=== PATIENT | male | born 1935 | race African-American/Black ===

== ENCOUNTER 2019-02-05 09:17 | Observation (INO) | payer MEDICAID, OTHER ==
[~2019-02-05] VITALS: Ht 172.7 cm; Wt 63.5 kg
[2019-02-05 09:30] VITALS: BP 104/63
--- NOTE | 2019-02-05 09:30 | NUR ---
ED Nurse Note: pt brought in to ER by ambulance from [facility] due to chest pain. pt aao x4 and ambulatory but weak gait. per pt, he started having chest pain 30 minutes ago and told SNF nurse and took Nitro 0.4mg under the tongue and no chest pain at this moment. skin clean and intact. pt wanted to have BM and put him on bedpan and no BM for more than 5 mintues. pt was told to let nurse know for BM again. pt is in gown and on cardiac montior. vs stable as documented. pt is at room air.
[2019-02-05 10:02] LABS: BASOPHILS % (AUTO) 0.8 % (0.0-2.0); EOSINOPHILS % (AUTO) 1.8 % (0.0-3.0); HEMATOCRIT 42.4 % (42.0-52.0); HEMOGLOBIN 13.3 G/DL (14.2-18.0); LYMPHOCYTES % (AUTO) 27.5 % (20.0-45.0); MEAN CORPUSCULAR VOLUME 91 FL (80-99); MONOCYTES % (AUTO) 7.7 % (1.0-10.0); NEUTROPHILS % (AUTO) 62.1 % (45.0-75.0); PLATELET COUNT 234 K/UL (150-450); RED BLOOD COUNT 4.66 M/UL (4.70-6.10); RED CELL DISTRIBUTION WIDTH 14.4 % (11.6-14.8)
--- NOTE | 2019-02-05 10:10 | NUR ---
ED Nurse Note: x-ray at bedside.
[2019-02-05] MEDS ORDERED: ATORVASTATIN CA40 MG ORAL (10:19)
[2019-02-05] MEDS ORDERED: ASPIR 8181 MG ORAL (10:19)
[2019-02-05] MEDS ORDERED: PLAVIX75 MG ORAL (10:19)
[2019-02-05] MEDS ORDERED: LEVOTHYROXINE75 MCG ORAL (10:30)
[2019-02-05] MEDS ORDERED: MILK OF MA400 MG/51 ORAL (10:30)
[2019-02-05] MEDS ORDERED: COLACE100 MG ORAL (10:30)
[2019-02-05] MEDS ORDERED: MULTIVITAMINS1 EAC8 ORAL (10:30)
[2019-02-05] MEDS ORDERED: SENNA8.6 M2 PO (10:30)
[2019-02-05] MEDS ORDERED: CRANBERRY450 M4 PO (10:30)
[2019-02-05] MEDS ORDERED: HUMALOG100 UNIT/4 SUBQ (10:30)
[2019-02-05] MEDS ORDERED: METOPROLOL TART25 MG ORAL (10:30)
--- NOTE | 2019-02-05 10:31 | Diagnostic Imaging Report ---
EXAM: XR Chest, 1 View CLINICAL HISTORY: CP TECHNIQUE: Frontal view of the chest. COMPARISON: None FINDINGS: Hardware: None. Lungs/pleura: Interstitial opacities may represent pulmonary vasculature congestion versus infectious/inflammatory process. No focal consolidation. No pleural effusion or pneumothorax. Heart/mediastinum: Normal. No cardiomegaly. Soft tissues: Unremarkable. Bones: No acute fracture. Degenerative changes of the acromioclavicular joints. Mild scoliosis. Upper abdomen: Normal. IMPRESSION: Interstitial opacities may represent pulmonary vasculature congestion versus infectious/inflammatory process.
[2019-02-05 10:33] LABS: ANION GAP 9 mmol/L (5-15); BLOOD UREA NITROGEN 11 mg/dL (7-18); CALCIUM 8.7 MG/DL (8.5-10.1); CARBON DIOXIDE 27 MMOL/L (21-32); CHLORIDE 104 MMOL/L (98-107); CREATININE 1.3 MG/DL (0.55-1.30); POTASSIUM 3.9 MMOL/L (3.5-5.1); SODIUM 140 MMOL/L (136-145)
[2019-02-05 10:44] LABS: ALANINE AMINOTRANSFERASE 29 U/L (12-78); ALBUMIN 3.2 G/DL (3.4-5.0); ALBUMIN/GLOBULIN RATIO 0.9 (1.0-2.7); ALKALINE PHOSPHATASE 81 U/L (46-116); ASPARTATE AMINO TRANSFERASE 23 U/L (15-37); BILIRUBIN,TOTAL 0.7 MG/DL (0.2-1.0); CREATINE KINASE 132 U/L (26-308)
--- NOTE | 2019-02-05 11:10 | Emergency Room Report ---
History of Present Illness General Chief Complaint: Chest Pain Source: Patient, Medical Record Present Illness HPI Patient presented with reports of chest pain by paramedics Patient reports that he feels significantly better upon arrival he was given nitroglycerin and aspirin patient's blood pressure did Decrease likely secondary to this intervention by paramedics Here denies any chest pain or shortness of breath denies any vomiting patient does have underlying Dementia which does limit the history of present illness denies any focal weakness Allergies: Coded Allergies: No Known Allergies (Unverified , 02/05/19) Patient History Past Medical History: see triage record Pertinent Family History: none Reviewed Nursing Documentation: PMH: Agreed; PSxH: Agreed Nursing Documentation-PMH Past Medical History: No History, Except For Hx COPD: Yes Hx Diabetes: Yes - insulin Review of Systems All Other Systems: negative except mentioned in HPI Physical Exam Vital Signs Date Time Temp Pulse Resp B/P (MAP) Pulse Ox O2 Delivery O2 Flow Rate FiO2 02/05/19 09:15 98.1 90 18 74/62 (66) 98 Room Air Sp02 EP Interpretation: reviewed, normal General Appearance: well appearing, no apparent distress Head: normocephalic, atraumatic Eyes: bilateral eye PERRL, bilateral eye EOMI ENT: hearing grossly normal, normal pharynx, TMs + canals normal, uvula midline Neck: full range of motion, supple, no meningismus, no bony tend Respiratory: lungs clear, normal breath sounds, no rhonchi, no respiratory distress, no retraction, no accessory muscle use Cardiovascular #1: normal peripheral pulses, regular rate, rhythm, no edema, no gallop, no JVD, no murmur Gastrointestinal: normal bowel sounds, non tender, soft, no mass, no organomegaly, non-distended, no guarding, no hernia, no pulsatile mass, no rebound Genitourinary: no CVA tenderness Musculoskeletal: normal inspection Neurologic: oriented x3, responsive, choir teacher III-XII nml as tested, motor strength/ tone normal, sensory intact Psychiatric: mood/affect normal Skin: normal color, no rash, warm/dry, palpation normal Lymphatic: normal inspection, no adenopathy Medical Decision Making Diagnostic Impression: Primary Impression: ACS (acute coronary syndrome) ER Course Patient is a fairly complex patient with multiple differential to consideration including but not limited to cardiac cardiopulmonary and vascular emergencies Patient's EKG does not show any obvious acute pathology cardiac enzyme is negative x1 patient's blood pressure has improved significantly And will be observed for further evaluation Labs Test 02/05/19 09:50 White Blood Count 4.0 K/UL (4.8-10.8) Red Blood Count 4.66 M/UL (4.70-6.10) Hemoglobin 13.3 G/DL (14.2-18.0) Hematocrit 42.4 % (42.0-52.0) Mean Corpuscular Volume 91 FL (80-99) Mean Corpuscular Hemoglobin 28.5 PG (27.0-31.0) Mean Corpuscular Hemoglobin Concent 31.3 G/DL (32.0-36.0) Red Cell Distribution Width 14.4 % (11.6-14.8) Platelet Count 234 K/UL (150-450) Mean Platelet Volume 5.7 FL (6.5-10.1) Neutrophils (%) (Auto) 62.1 % (45.0-75.0) Lymphocytes (%) (Auto) 27.5 % (20.0-45.0) Monocytes (%) (Auto) 7.7 % (1.0-10.0) Eosinophils (%) (Auto) 1.8 % (0.0-3.0) Basophils (%) (Auto) 0.8 % (0.0-2.0) Sodium Level 140 MMOL/L (136-145) Potassium Level 3.9 MMOL/L (3.5-5.1) Chloride Level 104 MMOL/L (98-107) Carbon Dioxide Level 27 MMOL/L (21-32) Anion Gap 9 mmol/L (5-15) Blood Urea Nitrogen 11 mg/dL (7-18) Creatinine 1.3 MG/DL (0.55-1.30) Estimat Glomerular Filtration Rate mL/min (>60) Glucose Level 136 MG/DL (74-106) Calcium Level 8.7 MG/DL (8.5-10.1) Total Bilirubin 0.7 MG/DL (0.2-1.0) Aspartate Amino Transf (AST/SGOT) 23 U/L (15-37) Alanine Aminotransferase (ALT/SGPT) 29 U/L (12-78) Alkaline Phosphatase 81 U/L (46-116) Total Creatine Kinase 132 U/L (26-308) Creatine Kinase MB 2.0 NG/ML (0.0-3.6) Creatine Kinase MB Relative Index 1.5 Troponin I 0.001 ng/mL (0.000-0.056) Pro-B-Type Natriuretic Peptide 202 pg/mL (0-125) Total Protein 6.8 G/DL (6.4-8.2) Albumin 3.2 G/DL (3.4-5.0) Globulin 3.6 g/dL Albumin/Globulin Ratio 0.9 (1.0-2.7) Lipase 217 U/L (73-393) EKG Diagnostic Results Rate: normal Rhythm: NSR ST Segments: no acute changes - No specific ST T wave changes Rhythm Strip Diag. Results EP Interpretation: yes Rate: 77 Rhythm: NSR, no PVC's, no ectopy Chest X-Ray Diagnostic Results Chest X-Ray Diagnostic Results : Chest X-Ray Ordered: Yes # of Views/Limited/Complete: 1 View Indication: Chest Pain EP Interpretation: Yes Interpretation: no consolidation, no effusion, no pneumothorax, no acute cardiopulmonary disease - Question congestion versus poor inspiration Impression: No acute disease - Possible congestion Electronically Signed by: Marin Layton DO Last Vital Signs Date Time Temp Pulse Resp B/P (MAP) Pulse Ox O2 Delivery O2 Flow Rate FiO2 02/05/19 09:30 60 18 Room Air 02/05/19 09:30 97.7 104/63 98 Status: improved Disposition: PLACE IN OBSERVATION Condition: Serious Referrals: NON PHYSICIAN (PCP) Marin Layton DO Feb 05, 2019 11:10
--- NOTE | 2019-02-05 12:54 | NUR ---
ED Nurse Note: Report given to ALENA Ceron
--- NOTE | 2019-02-05 13:50 | NUR ---
ED Nurse Note: pt left unit with 2 RNs in stable condition.
--- NOTE | 2019-02-05 14:00 | NUR ---
NURSE NOTES: Pt admitted to the unit from ED, Iv intact, pt Ox2-3, pt blind, with confusion. upper dentures in place. Heart monitor on. IV intact and asymptomatic. Patient in stable condition, breathing nonlabored in room air. Call light and bedside table within reach. No s/s of distress noted at this time. Bed in lowest position with two side rails up, break engaged. Will call the doctor regarding admission orders.will continue to monitor.
[2019-02-05 14:05] VITALS: BP 138/76
[2019-02-05 16:00] VITALS: BP 131/79
[2019-02-05] MEDS ORDERED: Milk of Magnesia 30ml Ud ORAL PRN (16:05)
[2019-02-05] MEDS: NovoLOG Insulin Flexpen SUBQ SCH ×2 (16:19→21:05)
--- NOTE | 2019-02-05 19:22 | NUR ---
HAND-OFF: Report given to ALENA Steele.
--- NOTE | 2019-02-05 19:30 | NUR ---
NURSE NOTES: Received report from ALENA Feliz. Patient is awake sitting on the bed; resting comfortably. No signs of acute distress noted; denies pain at this time. AOx3; able to make needs known with periods of forgetfulness. Ambulates with some supervision. Checked IV site; patent and flushed. No erythema, bleeding, or infiltration noted. Bed at lowest position, brakes on, siderails up x3. Call light within reach. Will continue to monitor.
[2019-02-05 20:00] VITALS: BP 144/82
[2019-02-05] MEDS: Metoprolol 25mg tab ORAL SCH (20:55)
[2019-02-05] MEDS: Atorvastatin 20mg tab ORAL SCH (20:55)
--- NOTE | 2019-02-05 21:06 | NUR ---
NURSE NOTES: Patient refuses skin assessment and insists on keeping the door shut. Risks and benefits explained; still refuses skin assessment and to leave the door open.
[2019-02-06] VITALS: BP 149/88
--- NOTE | 2019-02-06 00:16 | History & Physical ---
History of Present Illness General Date patient seen: Feb 06, 2019 Reason for Hospitalization: Chest Pain Present Illness HPI 83 yo male with hx of dementia c/o chest pain and was sent to ER.. Can't obtain reliable hx. Allergies: Coded Allergies: No Known Allergies (Unverified , 02/05/19) Medication History Scheduled Aspirin* (Aspir 81*), 81 MG ORAL DAILY, (Reported) Atorvastatin Calcium* (Atorvastatin Calcium*), 40 MG ORAL BEDTIME, (Reported) Clopidogrel Bisulfate* (Plavix*), 75 MG ORAL DAILY, (Reported) Cranberry Fruit Concentrate (Cranberry), 450 MG PO BID, (Reported) Docusate Sodium* (Colace*), 100 MG ORAL DAILY, (Reported) Levothyroxine Sodium* (Levothyroxine Sodium*), 25 MCG ORAL DAILY, (Reported) Magnesium Hydroxide* (Milk Of Magnesia*), 30 ML ORAL DAILY, (Reported) Metoprolol Tartrate* (Metoprolol Tartrate*), 25 MG ORAL EVERY 12 HOURS, ( Reported) Multivitamin With Minerals (Multivitamins With Minerals*), 1 TAB ORAL DAILY, ( Reported) Sennosides (Senna), Unknown Dose PO HS, (Reported) Miscellaneous Medications Insulin Lispro (Humalog), 0 SUBQ, (Reported) Patient History Limited by: medical condition History Provided By: Medical Record Healthcare decision maker Resuscitation status Full Code Advanced Directive on File Past Medical/Surgical History Past Medical/Surgical History: (1) Dementia (2) Diabetes 1.5, managed as type 2 (3) Hypertension Review of Systems Review of Symptoms General ROS: no weight loss or fever Psychological ROS: no depression or mood changes, no memory loss Ophthalmic ROS: no visual changes or eye irritation ENT ROS: no nasal congestion, hearing loss, dizziness Allergy and Immunology ROS: no allergic symptoms or urticaria Hematological and Lymphatic ROS: no swollen glands, unusual bleeding or bruising Endocrine ROS: diabetes, HTN Respiratory ROS: no cough, shortness of breath, or wheezing Cardiovascular ROS: no chest pain or dyspnea on exertion Gastrointestinal ROS: denies abdominal pain, bright red blood in stool. Musculoskeletal ROS: no myalgias or arthralgias Neurological ROS: Dementia Dermatological ROS: no new or changing skin lesions, rashes or pruritis Physical Exam Physical Exam General appearance: alert, cooperative, no distress, appears stated age Head: Normocephalic, without obvious abnormality, atraumatic Eyes: conjunctivae/corneas clear. PERRL, EOM's intact. Fundi benign Throat: Lips, mucosa, and tongue normal. Teeth and gums normal Neck: supple, symmetrical, trachea midline, no adenopathy, thyroid: not enlarged, symmetric, no tenderness/mass/nodules, no carotid bruit and no JVD Lungs: clear to auscultation bilaterally Heart: regular rate and rhythm, S1, S2 normal, no murmur, click, rub or gallop Abdomen: soft, non-tender. Bowel sounds normal. No masses, no organomegaly Extremities: extremities normal, atraumatic, no cyanosis or edema Pulses: 2+ and symmetric Skin: Skin color, texture, turgor normal. No rashes or lesions Neurologic: Grossly normal Last 24 Hour Vital Signs Date Time Temp Pulse Resp B/P (MAP) Pulse Ox O2 Delivery O2 Flow Rate FiO2 02/05/19 21:00 Room Air 02/05/19 20:55 63 144/82 02/05/19 20:00 99.1 63 20 144/82 (102) 100 02/05/19 20:00 68 02/05/19 16:00 70 02/05/19 16:00 98.1 57 20 131/79 (96) 95 02/05/19 14:38 Room Air 02/05/19 14:05 98.4 69 18 138/76 (96) 100 02/05/19 13:50 97.7 60 18 104/63 98 Room Air 02/05/19 09:30 60 18 Room Air 02/05/19 09:30 97.7 60 18 104/63 98 Room Air 02/05/19 09:15 98.1 90 18 74/62 (66) 98 Room Air Intake and Output 02/05/19 02/06/19 19:00 07:00 Intake Total 740 ml Balance 740 ml Intake Oral 240 ml IV Total 500 ml # Voids 3 Laboratory Tests Test 02/05/19 09:50 White Blood Count 4.0 K/UL (4.8-10.8) L Red Blood Count 4.66 M/UL (4.70-6.10) L Hemoglobin 13.3 G/DL (14.2-18.0) L Hematocrit 42.4 % (42.0-52.0) Mean Corpuscular Volume 91 FL (80-99) Mean Corpuscular Hemoglobin 28.5 PG (27.0-31.0) Mean Corpuscular Hemoglobin Concent 31.3 G/DL (32.0-36.0) L Red Cell Distribution Width 14.4 % (11.6-14.8) Platelet Count 234 K/UL (150-450) Mean Platelet Volume 5.7 FL (6.5-10.1) L Neutrophils (%) (Auto) 62.1 % (45.0-75.0) Lymphocytes (%) (Auto) 27.5 % (20.0-45.0) Monocytes (%) (Auto) 7.7 % (1.0-10.0) Eosinophils (%) (Auto) 1.8 % (0.0-3.0) Basophils (%) (Auto) 0.8 % (0.0-2.0) Sodium Level 140 MMOL/L (136-145) Potassium Level 3.9 MMOL/L (3.5-5.1) Chloride Level 104 MMOL/L (98-107) Carbon Dioxide Level 27 MMOL/L (21-32) Anion Gap 9 mmol/L (5-15) Blood Urea Nitrogen 11 mg/dL (7-18) Creatinine 1.3 MG/DL (0.55-1.30) Estimat Glomerular Filtration Rate mL/min (>60) Glucose Level 136 MG/DL (74-106) H Calcium Level 8.7 MG/DL (8.5-10.1) Total Bilirubin 0.7 MG/DL (0.2-1.0) Aspartate Amino Transf (AST/SGOT) 23 U/L (15-37) Alanine Aminotransferase (ALT/SGPT) 29 U/L (12-78) Alkaline Phosphatase 81 U/L (46-116) Total Creatine Kinase 132 U/L (26-308) Creatine Kinase MB 2.0 NG/ML (0.0-3.6) Creatine Kinase MB Relative Index 1.5 Troponin I 0.001 ng/mL (0.000-0.056) Pro-B-Type Natriuretic Peptide 202 pg/mL (0-125) H Total Protein 6.8 G/DL (6.4-8.2) Albumin 3.2 G/DL (3.4-5.0) L Globulin 3.6 g/dL Albumin/Globulin Ratio 0.9 (1.0-2.7) L Lipase 217 U/L (73-393) Height (Feet): 5 Height (Inches): 8.00 Weight (Pounds): 140 Medications Current Medications Medications (Trade) Dose Ordered Sig/[place] Route PRN Reason Start Time Stop Time Status Last Admin Dose Admin Acetaminophen (Tylenol) 650 mg PRN PRN ORAL Pain Scale (3-5) 02/05/19 15:45 03/07/19 15:44 Aspirin (Ecotrin) 81 mg DAILY ORAL 02/06/19 09:00 03/08/19 08:59 Atorvastatin Calcium (Lipitor) 40 mg BEDTIME ORAL 02/05/19 21:00 03/07/19 20:59 02/05/19 20:55 Clopidogrel Bisulfate (Plavix) 75 mg DAILY ORAL 02/06/19 09:00 03/08/19 08:59 Dextrose (Dextrose 50%) 25 ml Q30M PRN IV Hypoglycemia 02/05/19 15:45 03/07/19 15:44 Dextrose (Dextrose 50%) 50 ml Q30M PRN IV Hypoglycemia 02/05/19 15:45 03/07/19 15:44 Docusate Sodium (Colace) 100 mg DAILY ORAL 02/06/19 09:00 03/08/19 08:59 Insulin Aspart (NovoLOG) BEFORE MEALS AND HS SUBQ 02/05/19 16:30 03/07/19 16:29 02/05/19 21:05 Levothyroxine Sodium (Synthroid) 25 mcg ACBREAKFAST ORAL 02/06/19 06:30 03/08/19 06:29 Magnesium Hydroxide (Mom) 30 ml PRN PRN ORAL CON 02/05/19 16:05 03/08/19 08:59 Metoprolol Tartrate (Lopressor) 25 mg EVERY 12 HOURS ORAL 02/05/19 21:00 03/07/19 20:59 02/05/19 20:55 Multivitamins Therapeutic (Therapeutic Multivitamin) 1 ea DAILY ORAL 02/06/19 09:00 03/08/19 08:59 Sennosides (Senokot) 8.6 mg DAILY ORAL 02/06/19 09:00 03/08/19 08:59 Objective Narrative HEENTPERRLA,KAREN, Lymphatics,no adenopathy,lungCTA,CV RRR s1s2no m, abdomen soft BS present, no organomegaly, Neuro Alert,nlspeech, CN intact, Memory impared, extremity No E/C/C Assessment/Plan Problem List: (1) Chronic obstructive airway disease ICD Codes: J44.9 - Chronic obstructive pulmonary disease, unspecified SNOMED: 60112521 (2) Dementia ICD Codes: F03.90 - Unspecified dementia without behavioral disturbance SNOMED: 62410303 (3) Hypertension ICD Codes: I10 - Essential (primary) hypertension SNOMED: 90611084 (4) Diabetes 1.5, managed as type 2 ICD Codes: E13.9 - Other specified diabetes mellitus without complications SNOMED: 772775036 (5) Chest pain in adult ICD Codes: R07.9 - Chest pain, unspecified SNOMED: 73095102 Assessment/Plan: Will continue meds, check cardiac enzyme and if negative discharge back to [facility]. Appears to be GI in etiology [facility] Hospital declaration INPATIENT level of care is warranted for this patient because patient is a 89 year old with who presents with suspicion of . I have a high level of concern because . Patient is at high risk for . Plan of care/treatment include . Patient care is expected to be greater than 2 midnights. OBSERVATION level of care is warranted for this patient. Patient is a 89 year old with who presents with . Patient will be admitted for 1 midnight, but if additional night(s) is/are necessary, patient will be converted to inpatient status for the entire hospitalization Disposition: Once the patient is stable to leave the hospital, I anticipate the patient will likely be discharged to the following environment: Estimated discharge date: I spent 70 minutes on this patient's case, and minutes was dedicated to counseling and/or care coordination. MIPS ([employer]it-based Incentive Payment System) Applicable CPT: 58725, 58681 CHECK ALL THAT ARE MET: Measure #5 (CHF): All ages. Prescribe AWILDA/ARB upon discharge for patients with left ventricular systolic dysfunction. If not, the reason is clearly documented in the medical chart. Measure #8 (CHF): All ages. Prescribe a beta yana upon discharge for patients with left ventricular systolic dysfunction. If not, the reason is clearly documented in the medical chart. Measure #47 Advance care plan or surrogate decision maker documented in the medical record. Measure #130 The provider has documented, updated, or reviewed the patients current medication list and has documented it in the patients note. Measure #374 (All): Send report to referring provider. Measure #407(Sepsis due to MSSA bacteremia): Age 18+ Patient treated with a beta-lactam antibiotic (Nafcillin, Oxacillin or Cefazolin) as definitive therapy. MEDICAL COMPLEXITY High complexity medical decision making (need 2/3 categories) Problem - need 4 points Acute/new problem with new plan for workup (4 points, 1 max) Acute/new problem without additional workup (3 points, 1 max) Unstable chronic problem actively being managed (2 point each, 2 max) Stable chronic problem actively being managed (1 point each, 2 max) Self-limited/transient process (constipation, muscle ache, etc) (1 point each , 2 max) Data - need 4 points Reviewed labs/imaging studies (1 points, 2 max) Independent review of imaging (EKG, xrays, etc) (2 points, 2 max) Discussed case with consult/other MD/RN (2 points, 2 max) High Risk - qualify if have one of the following: Severe exacerbation of acute problem, acute mental status change, IV narcotics , monitoring drug levels (vancomycin, INR, tacrolimus etc) Phillip Landon MD Feb 06, 2019 00:16
--- NOTE | 2019-02-06 03:17 | NUR ---
NURSE NOTES: Patient is asleep lying semi-prado's; resting comfortably. No signs of acute distress or pain noted at this time.
[2019-02-06 04:00] VITALS: BP 146/79
[2019-02-06] MEDS: NovoLOG Insulin Flexpen SUBQ SCH ×4 (06:30→23:54)
[2019-02-06] MEDS ORDERED: Levothyroxine 25mcg tab ORAL SCH (06:30)
[2019-02-06 07:15] LABS: BASOPHILS % (AUTO) 1.2 % (0.0-2.0); EOSINOPHILS % (AUTO) 2.3 % (0.0-3.0); HEMOGLOBIN 13.6 G/DL (14.2-18.0); LYMPHOCYTES % (AUTO) 33.7 % (20.0-45.0); MEAN CORPUSCULAR VOLUME 90 FL (80-99); MONOCYTES % (AUTO) 7.6 % (1.0-10.0); NEUTROPHILS % (AUTO) 55.2 % (45.0-75.0); PLATELET COUNT 243 K/UL (150-450); RED BLOOD COUNT 4.68 M/UL (4.70-6.10); RED CELL DISTRIBUTION WIDTH 14.5 % (11.6-14.8); WHITE BLOOD COUNT 4.9 K/UL (4.8-10.8)
--- NOTE | 2019-02-06 07:30 | NUR ---
NURSE NOTES: I received the patient resting in bed. Patient alert to name. Patient set-up to sit at the side of his bed to eat breakfast. Patient does not display any signs of distress or SOB. Bed in the lowest position and call light within reach. I will continue to monitor the patient and implement care.
--- NOTE | 2019-02-06 07:34 | NUR ---
HAND-OFF: Report given to ALENA Bradley. Patient is awake lying semi-prado's; resting comfortably. In stable condition.
[2019-02-06 07:36] LABS: ANION GAP 9 mmol/L (5-15); BLOOD UREA NITROGEN 10 mg/dL (7-18); CALCIUM 9.6 MG/DL (8.5-10.1); CARBON DIOXIDE 25 MMOL/L (21-32); CHLORIDE 104 MMOL/L (98-107); CREATININE 1.3 MG/DL (0.55-1.30); POTASSIUM 3.7 MMOL/L (3.5-5.1); SODIUM 138 MMOL/L (136-145)
[2019-02-06 07:57] VITALS: BP 137/88
[2019-02-06] MEDS: Metoprolol 25mg tab ORAL SCH ×2 (08:08→23:54)
[2019-02-06] MEDS ORDERED: Aspirin EC 81mg tab ORAL SCH (09:00)
[2019-02-06] MEDS ORDERED: Multivitamin w/Minerals tab ORAL SCH (09:00)
[2019-02-06] MEDS ORDERED: Sennosides 8.6mg tab ORAL SCH (09:00)
[2019-02-06] MEDS ORDERED: Milk of Magnesia 30ml Ud ORAL SCH (09:00)
[2019-02-06] MEDS ORDERED: Docusate 100mg cap ORAL SCH (09:00)
[2019-02-06 12:00] VITALS: BP 133/74
--- NOTE | 2019-02-06 13:00 | NUR ---
HAND-OFF: Report given to ALENA Conn.
--- NOTE | 2019-02-06 13:01 | NUR ---
NURSE NOTES: Received report from ALENA Bradley. The patient denies of acute distress or shortness of breath. The patient denies of chest pain at this time. The patient's bed in the lowest position, call light in reach, and fall and aspiration precaution reinforced. Reinserted IV on right forearm 22G saline lock. Will continue plan of care.
[2019-02-06 16:00] VITALS: BP 109/61
--- NOTE | 2019-02-06 19:20 | NUR ---
HAND-OFF: Report given to ALENA Steele. The patient is resting on the bed without acute distress or shortness of breath. The patient's bed in the lowest position, call light in reach, and fall precaution reinforced. Endorsed plan of care.
--- NOTE | 2019-02-06 19:35 | NUR ---
NURSE NOTES: Received report from ALENA Conn. Patient is awake sitting on the bed; resting comfortably. No signs of acute distress noted; complains of some pain. AOx3; able to make needs known with periods of forgetfulness. Ambulates independently. Checked IV site; patent and flushed. No erythema, bleeding, or infiltration noted. Bed at lowest position, brakes on, siderails up x2. Call light within reach. Will continue to monitor.
[2019-02-06 20:00] VITALS: BP 122/82
--- NOTE | 2019-02-06 20:06 | NUR ---
NURSE NOTES: Called Dr. Landon to clarify with him if patient is to be kept on Observation status or Inpatient. Awaiting callback.
--- NOTE | 2019-02-06 20:34 | NUR ---
NURSE NOTES: Received order from Dr. Landon to discharge patient back to [facility] with alf medications. Noted and carried out.
--- NOTE | 2019-02-06 20:35 | NUR ---
NURSE NOTES: Called [facility] to see if patient will be accepted tonight. Was told, "Yeah, we'll take him back."
--- NOTE | 2019-02-06 20:53 | NUR ---
NURSE NOTES: Arranged transport with [facility] with at ETA of [phone].
[2019-02-06] MEDS ORDERED: NITROSTAT0.4 M2 SL (21:14)
[2019-02-06] MEDS ORDERED: FLEET ENEMA133 ML RECTAL (21:14)
[2019-02-06] MEDS ORDERED: SYNTHROID25 MCG ORAL (21:14)
[2019-02-06] MEDS ORDERED: MILK OF MA400 MG/51 ORAL (21:14)
[2019-02-06] MEDS ORDERED: ACETAMINOPHEN325 M1 ORAL (21:14)
[2019-02-06] MEDS ORDERED: SENNA8.6 M2 PO (21:14)
[2019-02-06] MEDS ORDERED: DULCOLAX10 MG RC (21:14)
--- NOTE | 2019-02-06 22:56 | NUR ---
NURSE NOTES: Followed up with [facility] regarding transport status. Was told, "we're backed up right now so we're looking at about 45 more minutes."
[2019-02-06] MEDS: Atorvastatin 20mg tab ORAL SCH (23:54)
[2019-02-07] VITALS: BP 155/99
--- NOTE | 2019-02-07 00:06 | NUR ---
NURSE NOTES: Per [facility], transport will arrive in approximately 20-25 minutes.
[2019-02-07 00:49] VITALS: BP 155/99
[2019-02-07] MEDS: Metoprolol 25mg tab ORAL SCH (00:49)
--- NOTE | 2019-02-07 01:32 | NUR ---
NURSE NOTES: Patient was discharged back to [facility] via [facility], 2 ambulance staff member assist without incident. No signs of acute distress noted; denies pain at this time. Vital signs stable upon discharge. Patient was taken off Tele box and d/c'ed IV site; tolerated well. Belongings list checked with patient. Discharge packet with medication list given and explained to ambulance staff; verbalized understanding. Called Prema from [facility] to confirm that patient is still being accepted. Was told, "Yes. We're still accepting him."
--- NOTE | 2019-02-07 01:33 | General Progress Note ---
Assessment/Plan Problem List: (1) Chronic obstructive airway disease ICD Codes: J44.9 - Chronic obstructive pulmonary disease, unspecified SNOMED: 41360146 Qualifiers: Qualified Codes: J44.9 - Chronic obstructive pulmonary disease, unspecified (2) Dementia ICD Codes: F03.90 - Unspecified dementia without behavioral disturbance SNOMED: 84514735 Qualifiers: (3) Hypertension ICD Codes: I10 - Essential (primary) hypertension SNOMED: [id number] Qualifiers: Qualified Codes: I10 - Essential (primary) hypertension (4) Diabetes 1.5, managed as type 2 ICD Codes: E13.9 - Other specified diabetes mellitus without complications SNOMED: 329087267 (5) Chest pain in adult ICD Codes: R07.9 - Chest pain, unspecified SNOMED: 99295691 Status: doing well Assessment/Plan: Will continue meds, check cardiac enzyme and if negative discharge back to [facility]. Appears to be GI in etiology Subjective Date patient seen: Feb 06, 2019 Time patient seen: 23:59 ROS Limited/Unobtainable: No Constitutional: Reports: no symptoms HEENT: Reports: no symptoms Cardiovascular: Reports: no symptoms Respiratory: Reports: no symptoms Gastrointestinal/Abdominal: Reports: no symptoms Genitourinary: Reports: no symptoms Neurologic/Psychiatric: Reports: no symptoms Endocrine: Reports: no symptoms Hematologic/Lymphatic: Reports: no symptoms Allergies: Coded Allergies: No Known Allergies (Unverified , 02/05/19) Objective Last 24 Hour Vital Signs Date Time Temp Pulse Resp B/P (MAP) Pulse Ox O2 Delivery O2 Flow Rate FiO2 02/07/19 00:49 67 155/99 02/06/19 21:00 Room Air 02/06/19 20:00 98.4 71 19 122/82 (95) 95 02/06/19 16:00 51 02/06/19 16:00 98.5 52 20 109/61 (77) 96 02/06/19 13:00 Room Air 02/06/19 12:02 49 02/06/19 12:00 98.7 52 20 133/74 (93) 99 02/06/19 09:00 Room Air 02/06/19 08:10 61 02/06/19 08:08 60 137/88 02/06/19 07:57 98.6 60 20 137/88 (104) 98 02/06/19 04:00 52 6/9/19 04:00 98.6 54 20 146/79 (101) 98 Intake and Output 02/06/19 02/07/19 19:00 07:00 Intake Total 640 ml Output Total 100 ml Balance 540 ml Intake Oral 640 ml Output Urine Total 100 ml # Voids 3 # Bowel Movements 1 Laboratory Tests 02/06/19 06:48: White Blood Count 4.9, Red Blood Count 4.68L, Hemoglobin 13.6L, Hematocrit 42.0 , Mean Corpuscular Volume 90, Mean Corpuscular Hemoglobin 29.1, Mean Corpuscular Hemoglobin Concent 32.4, Red Cell Distribution Width 14.5, Platelet Count 243, Mean Platelet Volume 5.7L, Neutrophils (%) (Auto) 55.2, Lymphocytes ( %) (Auto) 33.7, Monocytes (%) (Auto) 7.6, Eosinophils (%) (Auto) 2.3, Basophils (%) (Auto) 1.2, Sodium Level 138, Potassium Level 3.7, Chloride Level 104, Carbon Dioxide Level 25, Anion Gap 9, Blood Urea Nitrogen 10, Creatinine 1.3, Estimat Glomerular Filtration Rate , Glucose Level 117H, Hemoglobin A1c 5.8, Calcium Level 9.6, Magnesium Level 1.9, Troponin I 0.008 Height (Feet): 5 Height (Inches): 8.00 Weight (Pounds): 140 General Appearance: WD/WN EENT: PERRL/EOMI Neck: non-tender Cardiovascular: normal peripheral pulses Respiratory/Chest: chest wall non-tender Abdomen: normal bowel sounds Pelvis: normal external exam Extremities: normal range of motion, non-tender, normal inspection, no calf tenderness 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
--- NOTE | 2019-02-08 15:08 | Cardiology Report ---
APPROVED REPORT EKG Measurement Heart [id number] Sinus bradycardia Possible Left atrial enlargement Septal infarct, age undetermined Abnormal ECG
--- NOTE | 2019-02-10 12:18 | NUR ---
*-* INSURANCE *-* CLINICALS HAVE BEEN FAXED TO; IPA: [facility] P: [phone] F: [phone] (FAX CLINICALS) REF# [id number]
--- NOTE | 2019-02-11 12:56 | Discharge Summary ---
Discharge Summary Discharge Summary _ DATE OF ADMISSION: 02/05/2019 DATE OF DISCHARGE 02/07/2019 DISCHARGED BY: Dr. Phillip Landon BRIEF HOSPITAL COURSE: Shunt is an 83-year-old male, with history of dementia, complained of chest pain and was sent to ER. He was taken to ED by paramedics. He reported he felt significantly better upon arrival. He was given nitroglycerin and aspirin. History was limited due to dementia. He has medical history significant for dementia, diabetes and hypertension. On evaluation at the ED, blood pressure 74/62. Heart rate 90. O2 saturation 98 % on room air. Blood work did not show any leukocytosis. Hemoglobin and hematocrit were stable. Electrolytes were normal. Troponin was negative. CK MB 2.0. proBNP 202. EKG showed normal sinus rhythm with no specific ST or T wave changes. Chest x-ray showed interstitial opacities possible congestion versus infectious or inflammatory process. She was then admitted under observation for evaluation of chest pain, COPD, hypertension and diabetes. She was admitted to telemetry. She was given aspirin and Plavix. Glucose was monitored, she was placed on insulin sliding scale. She was continued on levothyroxine 25 mcg daily. She was given metoprolol 25 mg twice daily. She was continued on atorvastatin. Cardiac enzymes were negative. Chest pain appeared to be GI in etiology. She was eventually discharged back to [facility]. FINAL DIAGNOSES: Chest pain, appeared to be GI in etiology COPD Dementia Hypertension Type 2 diabetes DISPOSITION: Patient was discharged to a SNF. DISCHARGE MEDICATIONS: Refer to Discharge Medication List. I have been assigned to complete a discharge summary on this account, I was not involved with the patient's management. Marli Peacock NP Feb 11, 2019 12:56
== END 2019-02-07 01:30 ==
LOC: EDBD 09:17 → EDBEDREQ 09:53 → EMR 10:57 → 2E 11:26 → EDBEDREQ 12:33 → 2E 14:04
DX: R07.9 Chest pain, unspecified (principal); I24.9 Acute ischemic heart disease, unspecified; E13.8 Other specified diabetes mellitus with unspecified complications; J44.9 Chronic obstructive pulmonary disease, unspecified; Z79.4 Long term (current) use of insulin; F03.90 Unspecified dementia, unspecified severity, without behavioral disturbance, psychotic disturbance, mood disturbance, and anxiety; I10 Essential (primary) hypertension; Z79.82 Long term (current) use of aspirin; Z79.899 Other long term (current) drug therapy; R00.1 Bradycardia, unspecified; R94.31 Abnormal electrocardiogram [ECG] [EKG]
CPT/HCPCS: 36415 ×2; 71045; 80048; 80053; 82550; 82553; 83036; 83690; 83735; 83880; 84484 ×2; 85025 ×2; 87081 ×3; 93005; 96374; 99285; G0378 ×2; J1815; J1940; J8499